=== PATIENT | male | born 1965 | race Two or more races ===

== ENCOUNTER 2020-05-09 10:19 | Inpatient (IN) | payer MEDICAID ==
[~2020-05-09] VITALS: Ht 167.6 cm; Wt 116.9 kg
[2020-05-09 14:05] LABS: Basophils # (auto) 0.1 10 ^3/uL (0-0.2); Basophils % (auto) 0.7 % (0.0-2.0); Eosinophils # (auto) 0 10 ^3/uL (0-0.8); Eosinophils % (auto) 0.3 % (0.0-7.0); Hematocrit 38.6 % (41.0-53.0); Hemoglobin 13.5 g/dL (13.5-17.5); Lymphocytes # (auto) 0.6 10 ^3/uL (0.4-5.4); Lymphocytes % (auto) 4.3 % (10.0-50.0); Mean Corpuscular Hemoglobin 33.5 pg (28.0-32.0); Mean Corpuscular Hgb Conc. 34.8 g/dL (32.0-36.0); Mean Corpuscular Volume 96.2 fL (80.0-100.0); Monocytes # (auto) 0.8 10 ^3/uL (0-1.3); Monocytes % (auto) 6.4 % (0.0-12.0); Neutrophils # (auto) 11.6 10 ^3/uL (1.6-8.6); Neutrophils % (auto) 88.3 % (37.0-80.0); Platelet Count (auto) 110 10^3/uL (140-450); Red Blood Cells 4.01 10^6/uL (4.5-5.90); Red Cell Distribution Width 13.9 % (11.8-14.3); White Blood Cell 13.2 10^3/uL (4.4-10.8)
[2020-05-09 14:36] LABS: Alanine Aminotransferase 27 U/L (16-61); Albumin 2.8 g/dL (3.4-5.0); Anion Gap 12 (5-15); Aspartate Aminotransferase 39 U/L (15-37); BUN/Creatinine Ratio 8.2; Blood Urea Nitrogen 30 mg/dL (7-18); Carbon Dioxide 19 mmol/L (21-32); Chloride 94 mmol/L (98-107); GFR African American 22 mL/min; GFR Non-African American 19 mL/min; Glucose 105 mg/dL (74-106); Magnesium 1.9 mg/dL (1.6-2.6); Potassium 3.6 mmol/L (3.5-5.1); Sodium 125 mmol/L (136-145)
[2020-05-09 14:41] LABS: Alkaline Phosphatase 62 U/L (45-117); Bilirubin, Total 1.9 mg/dL (0.2-1.0); Total Protein 8.8 g/dL (6.4-8.2)
[2020-05-09] MEDS ORDERED: SODIUM CHLORIDE 0.9% 1,000 ML IV ONE (16:46)
[2020-05-09] MEDS ORDERED: cefTRIAXone 1GM/50ML D5W 50 ML IV ONE (17:00)
[2020-05-09 18:34] LABS: Urine Bacteria FEW /hpf (None Seen); Urine Blood Negative /uL (Negative); Urine Hyaline Cast FEW /lpf (0 - 2); Urine Specific Gravity 1.009 (1.001-1.035); Urine WBC 46 /hpf (0 - 3)
[2020-05-09] MEDS ORDERED: DOCUSATE SOD 100 MG CAP PO PRN (21:00)
[2020-05-09] MEDS ORDERED: MORPHINE SULF INJ 2 MG/ML SYRINGE 1ML IV PRN (21:00)
[2020-05-09] MEDS ORDERED: ACETAMINOPHEN 325 MG TAB PO PRN (21:00)
[2020-05-09] MEDS ORDERED: ONDANSETRON HCL 4 MG/2 ML VIAL IV PRN (21:00)
[2020-05-09 21:26] LABS: Cholesterol 75 mg/dL (< 200); Triglycerides 67 mg/dL (< 150)
[2020-05-09 21:29] LABS: HDL Cholesterol 25 mg/dL (40-59); LDL Cholesterol 52 mg/dL (< 100)
[2020-05-09 22:15] VITALS: BP 130/71
--- NOTE | 2020-05-10 00:05 | NUR ---
MS admit from ER [place] DORAN admitted to tele/MS after SBAR received. Patient oriented to BANDAR MORRISON RN primary RN, unit, room, bed, and unit policies regarding patient care and visiting hours. Patient weighed by bedscale and encouraged to call if they need something. All questions and concerns addressed, patient verbalized understanding. Note: Patient came in with lewis catheter, c/o low back pain which is improved once he had the lewis catheter placed.
[2020-05-10] MEDS ORDERED: TAMS0.4C36 PO (01:45)
[2020-05-10] MEDS ORDERED: SULF400T PO (01:45)
[2020-05-10] MEDS ORDERED: CHOLTAB15 PO (01:45)
[2020-05-10 05:00] VITALS: BP 108/64
[2020-05-10] MEDS: HYDROcodone-ACET 5/325MG TAB PO PRN ×2 (06:31→17:14)
[2020-05-10 07:29] LABS: Basophils # (auto) 0.1 10 ^3/uL (0-0.2); Basophils % (auto) 0.5 % (0.0-2.0); Eosinophils # (auto) 0.1 10 ^3/uL (0-0.8); Eosinophils % (auto) 1.1 % (0.0-7.0); Hematocrit 37.8 % (41.0-53.0); Hemoglobin 13.4 g/dL (13.5-17.5); Lymphocytes # (auto) 0.7 10 ^3/uL (0.4-5.4); Mean Corpuscular Hgb Conc. 35.3 g/dL (32.0-36.0); Mean Corpuscular Volume 96.2 fL (80.0-100.0); Monocytes # (auto) 0.9 10 ^3/uL (0-1.3); Monocytes % (auto) 8.7 % (0.0-12.0); Neutrophils # (auto) 8.6 10 ^3/uL (1.6-8.6); Neutrophils % (auto) 82.7 % (37.0-80.0); Platelet Count (auto) 99 10^3/uL (140-450); Red Blood Cells 3.93 10^6/uL (4.5-5.90); Red Cell Distribution Width 14.1 % (11.8-14.3); White Blood Cell 10.4 10^3/uL (4.4-10.8)
[2020-05-10 07:51] LABS: BUN/Creatinine Ratio 12.2; Potassium 3.6 mmol/L (3.5-5.1)
[2020-05-10] MEDS: cefTRIAXone 1GM/50ML D5W 50 ML IV SCH (08:19)
[2020-05-10 09:00] VITALS: BP 102/58
[2020-05-10] MEDS ORDERED: TAMSULOSIN HYDROCHLORIDE 0.4 MG CAP PO ONE (09:15)
[2020-05-10] MEDS: FAMOTIDINE 20 MG TAB PO SCH (09:53)
[2020-05-10] MEDS: SODIUM CHLORIDE 0.9% 1,000 ML IV SCH (09:53)
[2020-05-10 10:16] LABS: INR 1.33 (0.9-1.15); Partial Thromboplastin Time 33.9 sec (23.0-31.2)
--- NOTE | 2020-05-10 10:25 | NUR ---
Nutrition Assessment/consult Notes please see attached link for complete assessment Est Energy needs ABW 90 [id number] kcals (17-20 kcal/kgABW), Est Protein needs: 72-90 gms/day (0.8-1.0 gm/kgABW r/t elev RFT). Will continue to monitor and reassess prn. Addendum: 05/10/20 at [address] Amended: Links added.
--- NOTE | 2020-05-10 11:45 | NUR ---
MD AT BEDSIDE PATIENT ALERT AND ORIENTED X4 MD AT BEDSIDE. PATIENT VERBALIZED UNDERSTANDING OF POC. WILL CONTINUE TO MONITOR
[2020-05-10 13:00] VITALS: BP 101/63
--- NOTE | 2020-05-10 16:54 | NUR ---
ASSISTED PATIENT TO BATHROOM PATIENT HAD BM TOLERATED WELL WILL CONTINUE TO MONITOR
[2020-05-10 17:00] VITALS: BP 112/61
--- NOTE | 2020-05-10 19:05 | NUR ---
Opening Shift Note Assumed care of patient from day shift RN patient awake and alert oriented x4. No S/S of distress/SOB or pain. Instructed on POC and to call for assist PRN, safety measures in place bed in lowest position side rails up x2 and call light with in reach. will continue to monitor for changes Q1hr and PRN.
[2020-05-10 22:00] VITALS: BP 113/68
[2020-05-11] MEDS: HYDROcodone-ACET 5/325MG TAB PO PRN ×2 (00:11→10:39)
[2020-05-11 05:00] VITALS: BP 97/49
[2020-05-11] MEDS: SODIUM CHLORIDE 0.9% 1,000 ML IV SCH (06:10)
[2020-05-11 06:32] LABS: Potassium 3.2 mmol/L (3.5-5.1)
[2020-05-11 06:39] LABS: Albumin 2.3 g/dL (3.4-5.0); BUN/Creatinine Ratio 17.9; Calcium 7.8 mg/dL (8.5-10.1); Magnesium 2.4 mg/dL (1.6-2.6)
[2020-05-11 08:00] VITALS: BP 111/61
[2020-05-11] MEDS ORDERED: POTASSIUM CHL 20 Meq TABLET PO ONE (08:15)
[2020-05-11] MEDS: cefTRIAXone 1GM/50ML D5W 50 ML IV SCH (09:17)
[2020-05-11] MEDS: FAMOTIDINE 20 MG TAB PO SCH (09:17)
[2020-05-11 12:00] VITALS: BP 122/57
[2020-05-11 13:47] VITALS: BP 122/57
[2020-05-11 16:00] LABS: Hepatitis B Surface Antibody Negative
--- NOTE | 2020-05-11 16:05 | NUR ---
Discharge instructions given as ordered. Encourage to follow up with PMD as instructed. All questions and concerns addressed. Patient verbalized understanding. Medication reconciliation form completed and copy given to patient. Home medications held in Pharmacy returned to patient, and needed vaccines given. IV removed with catheter intact and pressure dressing applied. Patient discharged with Werner catheter, changed to leg bag. Patient taken to vehicle via wheelchair with all personal belongings, accompanied by staff and family member. No distress noted at time of departure.
[2020-05-11 16:37] LABS: Hepatitis A Total Antibody Negative
[2020-05-11 17:54] LABS: Hepatitis B Core Total AB Negative; Hepatitis B Surface Antigen Negative (Negative)
[2020-05-11] MEDS ORDERED: TAMSULOSIN HYDROCHLORIDE 0.4 MG CAP PO SCH (18:00)
== END 2020-05-11 16:05 | disposition home or self-care (01) | DRG 463 ==
LOC: ER 10:19 → OVERFLOW 10:20 → CENTRAL 21:45
PROVIDERS: ADMIT Hospitalist; ATTEND Internal Medicine
DX: N13.6 Pyonephrosis (principal); N17.9 Acute kidney failure, unspecified; E87.1 Hypo-osmolality and hyponatremia; E66.01 Morbid (severe) obesity due to excess calories; E44.0 Moderate protein-calorie malnutrition; K76.6 Portal hypertension; Z68.41 Body mass index [BMI] 40.0-44.9, adult; K74.60 Unspecified cirrhosis of liver; K80.20 Calculus of gallbladder without cholecystitis without obstruction; Z86.19 Personal history of other infectious and parasitic diseases; B18.2 Chronic viral hepatitis C; F19.10 Other psychoactive substance abuse, uncomplicated; N40.1 Benign prostatic hyperplasia with lower urinary tract symptoms; R33.8 Other retention of urine; Z79.899 Other long term (current) drug therapy; B95.2 Enterococcus as the cause of diseases classified elsewhere
CPT/HCPCS: 36415; 74176; 76705; 80048; 80053; 80061; 81001; 82105; 82140; 83690; 83735; 84154; 84484; 85025; 85610; 85730; 86704; 86706; 86708; 86803; 87086; 87088; 87186; 87340; 93306; G0378; J0696

== ENCOUNTER 2024-11-07 08:35 | Day surgery (SDC) | payer MEDICAID ==
[2024-11-06 14:16] LABS: Urine Bacteria None Seen /hpf (None Seen)
[2024-11-06 14:22] LABS: Basophils # (auto) 0 10 ^3/uL (0-0.2); Basophils % (auto) 0.3 % (0.0-2.0); Eosinophils # (auto) 0 10 ^3/uL (0-0.8); Eosinophils % (auto) 0.2 % (0.0-7.0); Hematocrit 38.3 % (41.0-53.0); Hemoglobin 13.2 g/dL (13.5-17.5); Lymphocytes # (auto) 0.4 10 ^3/uL (0.4-5.4); Mean Corpuscular Hemoglobin 31.8 pg (28.0-32.0); Mean Corpuscular Hgb Conc. 34.6 g/dL (32.0-36.0); Mean Corpuscular Volume 91.9 fL (80.0-100.0); Monocytes # (auto) 0.2 10 ^3/uL (0-1.3); Monocytes % (auto) 5.1 % (0.0-12.0); Neutrophils # (auto) 3.8 10 ^3/uL (1.6-8.6); Neutrophils % (auto) 85.4 % (37.0-80.0); Platelet Count (auto) 66 10^3/uL (140-450); Red Blood Cells 4.16 10^6/uL (4.5-5.90); Red Cell Distribution Width 13.9 % (11.8-14.3); White Blood Cell 4.5 10^3/uL (4.4-10.8)
[2024-11-06 14:45] LABS: INR 1.13 (0.9-1.15); Partial Thromboplastin Time 32.4 SEC (24.5-34.5); Prothrombin Time 11.8 sec (9.3-11.8)
[2024-11-06 15:20] LABS: Alanine Aminotransferase 32 U/L (7-40); Albumin 4.7 g/dL (3.2-4.8); Alkaline Phosphatase 53 U/L (46-116); Anion Gap 7 (5-15); Aspartate Aminotransferase 27 U/L (13-40); BUN/Creatinine Ratio 8.7 (10.0-20.0); Bilirubin, Total 0.9 mg/dL (0.2-1.0); Blood Urea Nitrogen 10 mg/dL (9-23); Calcium 9.7 mg/dL (8.7-10.4); Carbon Dioxide 27 mmol/L (20-31); Chloride 104 mmol/L (98-107); Glucose 88 mg/dL (74-106); Potassium 4.3 mmol/L (3.5-5.1); Sodium 138 mmol/L (136-145); Total Protein 7.7 g/dL (5.7-8.2)
[2024-11-06 15:24] LABS: Urine Blood Negative /uL (Negative); Urine Clarity Clear (Clear); Urine Color Light-Yellow (Yellow); Urine Protein, UAD Negative (Negative); Urine Specific Gravity 1.006 (1.001-1.035); Urine Squamous Epithelial Cell FEW /hpf (<5); Urine Urobilinogen Normal (Negative); Urine WBC < 1 /HPF (0-3); Urine pH 6.5 (5.0-9.0)
[~2024-11-07] VITALS: Ht 167.6 cm; Wt 73.5 kg
[~2024-11-07 08:35] MED LIST: FER325T PO; FURO1TAB31 PO; LACO100T3 PO; LACT10SO3 PO; LEVE100012 PO; SPIR50TA5 PO
--- NOTE | 2024-11-07 08:56 | DVHHP2 ---
GI H&P Pre-Op Assessment Date: 11/07/24 Chief complaint: cirrhosis HPI: per clinic note Past medical history: per clinic note Past surgical history: per clinic note Family history: per clinic note Physical exam: General: NAD, AAOX3 HEENT: PERRL, no scleral icterus, normal hearing, gums without lesions or bleeding, oropharynx clear without erythema or exudate. Neck: Supple without enlargement of the thyroid, or lymphadenopathy. Chest: Normal size and shape, no tenderness, lung mcfarlane clear to auscultation and percussion, nonlabored breathing. Heart: RRR, no murmur Abdomen: non-distended, no tenderness to palpation, +BS, no hepatosplenomegaly Extremities: no edema Neurological: CN II-XII intact, sensation intact in all extremities, 5+ strength in all extremities Skin: No rashes, No jaundice Assessment: - cirrhosis, esophageal variceal screening. Plan: - EGD - Risks (bleeding, infection, perforation, reaction to sedation medications and cardiopulmonary arrest) and benefit of the procedure were explained to patient. Patient agrees to undergo the procedure. TERRY RICKETTS MD Nov 07, 2024 08:56
[2024-11-07] MEDS ORDERED: EPINEPHrine HCL 1 MG/10 ML SYRG ONE (09:53)
[2024-11-07 10:03] VITALS: RESP 12; TEMP 97.6; O2SAT 100
--- NOTE | 2024-11-07 10:03 | DVHDS2 ---
Physician Discharge Progress N Final Diagnosis: Portal hypertensive gastropathy Operations or Procedures: Operations or Procedures EGD Condition on Discharge: Good Disposition: Home Discharge Instructions: Diet: Regular Activity: No Restrictions, As Tolerated Medications: Resume previous home medications Follow Up Care: Discharge Statement: "Patient was advised to return to the ER or call 911 if any headaches, dizziness, shortness of breath, chest pain, abdominal pain, bleeding, fevers, or worsening of medical condition. Patient was counseled about treatment plan, medications, possible side effects, patientverbalized understanding. All questions were answered to the best of my ability. This discharge took greater then 30 minutes in planning, reviewing documentation, counseling the patient, and discussing with other team members." TERRY RICKETTS MD Nov 07, 2024 10:03
--- NOTE | 2024-11-07 10:03 | DVHOP2 ---
Operative Report DATE OF OPERATION: 11/07/24 PROCEDURE: Upper Endoscopy. PREOPERATIVE INDICATION: The patient is a 59 -year-old male with cirrhosis undergoing endoscopy for esophageal variceal screening. POSTOPERATIVE DIAGNOSES: 1. Portal hypertensive gastropathy 2. No esophageal varices PROCEDURE PERFORMED BY: Chas Brannon SCOPE: Olympus videoendoscope. ASA CLASS: 3 PREOPERATIVE MEDICATIONS: MAC with Juanito SPEAR PROCEDURE IN DETAIL: After obtaining an informed consent, the patient was placed on left lateral decubitus position. The patient was then sedated with the above medications. A bite block was placed between his teeth. The endoscope was then passed through the oropharynx, into the esophagus, and thr ough the stomach and pylorus up to the second and third part of the duodenum. The duodenum was normal in appearance. There was portal hypertensive gastropathy in the stomach. The GE junction was normal in appearance at 40 cm. There was no esophageal varices in the distal esophagus. The esophagus was normal in appearance. The endoscope was then withdrawn. The patient tolerated the procedure well without difficulty. COMPLICATIONS : None SPECIMENS: None DISPOSITION: D/C to home PLAN: 1. Patient get a repeat EGD in 1-2 years for esophageal variceal screening. CHAS BRANNON MD Nov 07, 2024 10:03
[2024-11-07 10:20] VITALS: BP 96/58; PULSE 65; RESP 16; O2SAT 99
== END 2024-11-07 10:35 | disposition home or self-care (01) ==
LOC: GI 08:35
PROVIDERS: ATTEND Internal Medicine Gastroenterology
DX: K74.69 Other cirrhosis of liver (principal); K76.6 Portal hypertension; K31.89 Other diseases of stomach and duodenum; Z79.899 Other long term (current) drug therapy; Z86.2 Personal history of diseases of the blood and blood-forming organs and certain disorders involving the immune mechanism; Z86.19 Personal history of other infectious and parasitic diseases; Z87.891 Personal history of nicotine dependence
CPT/HCPCS: 36415; 43235; 80053; 81001; 85025; 85610; 85730; J7030